=== PATIENT | male | born 1980 | race African-American/Black ===

== ENCOUNTER 2018-12-17 22:13 | Emergency (ER) | payer BC ==
[~2018-12-17] VITALS: Ht 188 cm; Wt 75.0 kg
[2018-12-17 23:32] VITALS: BP 132/81
== END 2018-12-18 01:00 | disposition left against medical advice (07) ==
LOC: ER 22:13
DX: R10.9 Unspecified abdominal pain (principal); Z53.21 Procedure and treatment not carried out due to patient leaving prior to being seen by health care provider